=== PATIENT | male | born 1985 | race Caucasian/White ===

== ENCOUNTER 2016-08-14 21:46 | Emergency (ER) | payer BC | END 2016-08-15 00:37 | disposition home or self-care (01) | LOC: D.ER 21:46 | DX: M62.838 Other muscle spasm (principal); M54.2 Cervicalgia; F17.200 Nicotine dependence, unspecified, uncomplicated ==

== ENCOUNTER 2020-08-09 05:34 | Day surgery (SDC) | payer OTHER ==
[~2020-08-09] VITALS: Ht 188 cm; Wt 91.6 kg
[~2020-08-09 05:34] MED LIST: FERGON 240 MG240 MG PO; HYDROCODON-ACE1 EA10 PO; MILK THISTLE PO; PROTONIX40 MG PO; SAW PALMETTO450 MG PO
[2020-08-09 06:40] LABS: BASOPHILS 0.3 % (0-2); EOSINOPHILS 1.7 % (0-7); HEMATOCRIT 37.1 % (42.0-54.0); HEMOGLOBIN 11.3 g/dL (13.5-17.5); IMMATURE GRANULOCYTES 0.2 % (0-5); LYMPHOCYTE ABS# 2.76 10x3/uL (1.32-3.57); LYMPHOCYTES 24.1 % (15-50); MCH 22.2 pg (26.0-34.0); MCHC 30.5 g/dL (31.0-37.0); MEAN PLATELET VOLUME 8.6 fL (7.4-10.4); MONOCYTES 8.2 % (2-11); NEUTROPHIL ABS# 7.49 10x3/uL (1.78-5.38); NEUTROPHILS 65.5 % (40-80); RBC 5.08 10x6/uL (4.20-6.10); RDW 19.2 % (11.5-14.5); WBC 11.4 10x3/uL (4.8-10.8)
[2020-08-09 06:49] LABS: PLATELET COUNT 417 10x3/uL (130-400)
[2020-08-09 06:56] LABS: APTT 31.7 SECONDS (22.8-39.4); INR 1.14 (0.85-1.17); PROTIME 13.5 SECONDS (11.6-15.0)
[2020-08-09 07:02] VITALS: BP 109/77; Ht 188 cm; Wt 91.6 kg
[2020-08-09] MEDS ORDERED: BACTRIM DS TAB1 EAC1 PO (10:34)
[2020-08-09] MEDS ORDERED: TYLENOL W/CODEI1 TAB PO (10:35)
--- NOTE | 2020-08-09 12:21 | NUR ---
1200 IV DC'D. CATHETER TIP INTACT. NO BLEEDING AT SITE. BANDAID APPLIED. PT STATES HE CANNOT TOLERATE PERCOCET THAT WAS PRESCIBED FOR POST OP PAIN. 1205 DR FINNEGAN NOTIFED OF PT'S INTOLERANCE OF PERCOCET AND HIS REQUEST FOR NORCO WHICH HE HAS TAKEN AND CAN TOLERATE. PT STATES THAT PERCOCET "UPSETS HIS STOMACH" 1206 PT HAS MET DISCHARGE CRITERIA AND IS WAITING ON DR FINNEGAN TO WRITE ANOTHER PRESCRIPTION FOR PAIN
--- NOTE | 2020-08-09 12:55 | NUR ---
1216 DR FINNEGAN AT PT'S BEDSIDE AND A NEW PRESCRIPTION FOR NORCO WRITTEN FOR PT.
== END 2020-08-09 12:22 | disposition home or self-care (01) ==
LOC: D.OPS 05:34
PROVIDERS: Anesthesiology; ATTEND Surgery
DX: C20 Malignant neoplasm of rectum (principal); K92.2 Gastrointestinal hemorrhage, unspecified

== ENCOUNTER 2020-08-21 10:43 | Inpatient (IN) | payer OTHER ==
[~2020-08-21] VITALS: Ht 188 cm; Wt 91.3 kg
[~2020-08-21 10:43] MED LIST changes: +BACTRIM DS TAB1 EAC1 PO; +TYLENOL W/CODEI1 TAB PO
[2020-08-21 11:38] LABS: BASOPHILS 0.1 % (0-2); EOSINOPHILS 0.2 % (0-7); HEMATOCRIT 36.3 % (42.0-54.0); HEMOGLOBIN 11.2 g/dL (13.5-17.5); IMMATURE GRANULOCYTES 0.9 % (0-5); LYMPHOCYTE ABS# 0.88 10x3/uL (1.32-3.57); LYMPHOCYTES 8.5 % (15-50); MCH 22.1 pg (26.0-34.0); MCHC 30.9 g/dL (31.0-37.0); MCV 71.7 fL (80.0-100.0); MEAN PLATELET VOLUME 8.3 fL (7.4-10.4); MONOCYTES 6.5 % (2-11); NEUTROPHIL ABS# 8.67 10x3/uL (1.78-5.38); NEUTROPHILS 83.8 % (40-80); PLATELET COUNT 387 10x3/uL (130-400); RBC 5.06 10x6/uL (4.20-6.10); RDW 19.5 % (11.5-14.5); WBC 10.3 10x3/uL (4.8-10.8)
[2020-08-21 11:40] LABS: CALC OSMOLALITY 269 mosm/kg (275-300); CARBON DIOXIDE 25.3 mmol/L (21.0-32.0); CHLORIDE - SERUM 103 mmol/L (98-107); CREATININE - SERUM 0.7 mg/dL (0.6-1.3); GLUCOSE 111 mg/dL (74-106); POTASSIUM - SERUM 3.8 mmol/L (3.5-5.1); SODIUM 135 mmol/L (136-145); UREA NITROGEN 10 mg/dL (7-18); eGFR NON AFRICAN AMERICAN > 90 mL/min (90-120)
[2020-08-21 11:49] LABS: ALBUMIN 3.6 g/dL (3.4-5.0); ALKALINE PHOSPHATASE 70 U/L (30-120); ALT (SGPT) 23 U/L (10-68); AMYLASE - SERUM 51 U/L (25-115); LIPASE 82 U/L (73-393); PROTEIN - SERUM 7.4 g/dL (6.4-8.2); TROPONIN-I < 0.017 ng/mL (0.000-0.060)
[2020-08-21 13:35] LABS: INR 1.14 (0.85-1.17); PROTIME 13.5 SECONDS (11.6-15.0)
[2020-08-21 16:46] LABS: HEMATOCRIT 36.7 % (42.0-54.0); HEMOGLOBIN 11.6 g/dL (13.5-17.5)
--- NOTE | 2020-08-21 17:07 | NUR ---
PT ARRIVED VIA BED FROM ER, IV FLUID RESTARTED NS AT 100mL/HR
[2020-08-21 21:33] VITALS: BP 148/86
[2020-08-22] VITALS (7 sets, daily range): BP systolic 113–130; BP diastolic 71–82; Ht 188 cm; Wt 91.3 kg
[2020-08-22 01:20] LABS: HEMATOCRIT 32.8 % (42.0-54.0); HEMOGLOBIN 10.2 g/dL (13.5-17.5)
[2020-08-22 06:08] LABS: BASOPHILS 0.2 % (0-2); HEMATOCRIT 32.4 % (42.0-54.0); IMMATURE GRANULOCYTES 0.5 % (0-5); LYMPHOCYTES 25.4 % (15-50); MCH 22.3 pg (26.0-34.0); MCHC 30.9 g/dL (31.0-37.0); MCV 72.2 fL (80.0-100.0); MEAN PLATELET VOLUME 8.5 fL (7.4-10.4); MONOCYTES 14.3 % (2-11); NEUTROPHIL ABS# 3.17 10x3/uL (1.78-5.38); NEUTROPHILS 57.6 % (40-80); PLATELET COUNT 323 10x3/uL (130-400); RBC 4.49 10x6/uL (4.20-6.10); RDW 19.5 % (11.5-14.5)
[2020-08-22 06:21] LABS: WBC 5.5 10x3/uL (4.8-10.8)
[2020-08-22 06:43] LABS: APTT 25.1 SECONDS (22.8-39.4)
[2020-08-22 06:44] LABS: INR 1.19 (0.85-1.17)
[2020-08-22 07:03] LABS: ALBUMIN 2.9 g/dL (3.4-5.0); ALKALINE PHOSPHATASE 60 U/L (30-120); BILIRUBIN - TOTAL 0.42 mg/dL (0.2-1.3); CALC OSMOLALITY 270 mosm/kg (275-300); CALCIUM 8.3 mg/dL (8.5-10.1); CHLORIDE - SERUM 104 mmol/L (98-107); CREATININE - SERUM 0.7 mg/dL (0.6-1.3); FERRITIN 56 ng/mL (3-244); GLUCOSE 85 mg/dL (74-106); POTASSIUM - SERUM 3.4 mmol/L (3.5-5.1); PROTEIN - SERUM 6.4 g/dL (6.4-8.2); SODIUM 136 mmol/L (136-145); UREA NITROGEN 12 mg/dL (7-18); eGFR NON AFRICAN AMERICAN > 90 mL/min (90-120)
[2020-08-22 07:04] LABS: ALT (SGPT) 17 U/L (10-68)
--- NOTE | 2020-08-22 07:20 | NUR ---
Patient's pain managed with the prescribed pain medication, he appeared to rest well.
[2020-08-22 13:25] LABS: ALBUMIN 3.1 g/dL (3.4-5.0); ALKALINE PHOSPHATASE 63 U/L (30-120); ALT (SGPT) 19 U/L (10-68); BILIRUBIN - TOTAL 0.25 mg/dL (0.2-1.3); CALC OSMOLALITY 270 mosm/kg (275-300); CALCIUM 8.2 mg/dL (8.5-10.1); CARBON DIOXIDE 25.6 mmol/L (21.0-32.0); CHLORIDE - SERUM 103 mmol/L (98-107); CREATININE - SERUM 0.8 mg/dL (0.6-1.3); GLUCOSE 109 mg/dL (74-106); POTASSIUM - SERUM 3.5 mmol/L (3.5-5.1); PROTEIN - SERUM 6.6 g/dL (6.4-8.2); SODIUM 135 mmol/L (136-145); UREA NITROGEN 12 mg/dL (7-18); eGFR NON AFRICAN AMERICAN > 90 mL/min (90-120)
[2020-08-22 15:59] LABS: HEMATOCRIT 32.3 % (42.0-54.0)
[2020-08-22 16:28] LABS: ALBUMIN 3.1 g/dL (3.4-5.0); ALKALINE PHOSPHATASE 64 U/L (30-120); ALT (SGPT) 19 U/L (10-68); BILIRUBIN - TOTAL 0.21 mg/dL (0.2-1.3); CALC OSMOLALITY 268 mosm/kg (275-300); CALCIUM 8.1 mg/dL (8.5-10.1); CHLORIDE - SERUM 103 mmol/L (98-107); CREATININE - SERUM 0.8 mg/dL (0.6-1.3); GLUCOSE 83 mg/dL (74-106); POTASSIUM - SERUM 3.8 mmol/L (3.5-5.1); PROTEIN - SERUM 6.1 g/dL (6.4-8.2); SODIUM 135 mmol/L (136-145); UREA NITROGEN 12 mg/dL (7-18); eGFR NON AFRICAN AMERICAN > 90 mL/min (90-120)
[2020-08-22 22:11] LABS: ALBUMIN 2.9 g/dL (3.4-5.0); ALKALINE PHOSPHATASE 62 U/L (30-120); ALT (SGPT) 17 U/L (10-68); BILIRUBIN - TOTAL 0.11 mg/dL (0.2-1.3); CALC OSMOLALITY 272 mosm/kg (275-300); CALCIUM 8.2 mg/dL (8.5-10.1); CARBON DIOXIDE 26.8 mmol/L (21.0-32.0); CHLORIDE - SERUM 104 mmol/L (98-107); CREATININE - SERUM 0.8 mg/dL (0.6-1.3); GLUCOSE 112 mg/dL (74-106); POTASSIUM - SERUM 3.5 mmol/L (3.5-5.1); PROTEIN - SERUM 6.4 g/dL (6.4-8.2); SODIUM 136 mmol/L (136-145); UREA NITROGEN 13 mg/dL (7-18); eGFR NON AFRICAN AMERICAN > 90 mL/min (90-120)
[2020-08-23 01:05] LABS: HEMATOCRIT 30.2 % (42.0-54.0); HEMOGLOBIN 9.4 g/dL (13.5-17.5)
[2020-08-23 02:32] LABS: BILIRUBIN NEGATIVE (NEGATIVE); KETONE NEGATIVE (NEGATIVE); NITRITE NEGATIVE (NEGATIVE); UROBILINOGEN NORMAL mg/dL (< 2)
[2020-08-23 02:33] LABS: BACTERIA FEW HPF (NONE SEEN); SQUAMOUS EPITHELIAL 0-5 HPF (0-4); WHITE CELLS - URINE 0-5 HPF (0-1)
[2020-08-23 04:37] VITALS: BP 117/79
--- NOTE | 2020-08-23 05:50 | NUR ---
PATIENT HAD HIS PAIN MANAGED WITH THE PRESCRIBED PAIN MEDICATIONS, HE DID NOT WANT TO WEAR HIS SCD'S, HS APPEARED TO REST WELL THROUGH THE NIGHT.
[2020-08-23 07:00] LABS: ALBUMIN 2.9 g/dL (3.4-5.0); ALKALINE PHOSPHATASE 59 U/L (30-120); ALT (SGPT) 16 U/L (10-68); BILIRUBIN - TOTAL 0.23 mg/dL (0.2-1.3); CALC OSMOLALITY 271 mosm/kg (275-300); CALCIUM 8.6 mg/dL (8.5-10.1); CHLORIDE - SERUM 104 mmol/L (98-107); CREATININE - SERUM 0.7 mg/dL (0.6-1.3); GLUCOSE 93 mg/dL (74-106); POTASSIUM - SERUM 3.7 mmol/L (3.5-5.1); PROTEIN - SERUM 6.5 g/dL (6.4-8.2); SODIUM 136 mmol/L (136-145); UREA NITROGEN 13 mg/dL (7-18); eGFR NON AFRICAN AMERICAN > 90 mL/min (90-120)
[2020-08-23 07:47] VITALS: BP 117/78
[2020-08-23 09:53] LABS: HEMATOCRIT 31.4 % (42.0-54.0); HEMOGLOBIN 9.7 g/dL (13.5-17.5)
[2020-08-23] MEDS ORDERED: FLORAJEN3 CAPS460 MG PO (11:03)
[2020-08-23] MEDS ORDERED: LEVOFLOXACIN500 MG PO (11:04)
[2020-08-23] MEDS ORDERED: FLAGYL500 MG PO (11:04)
[2020-08-23] MEDS ORDERED: DURAGESIC1 EAC4 TOPICAL (11:27)
[2020-08-23] MEDS ORDERED: HYDROCODON-ACE1 EA10 PO (11:56)
[2020-08-23] MEDS ORDERED: MS CONTIN30 MG PO (12:15)
[2020-08-23 12:25] VITALS: BP 124/90
[2020-08-23 12:52] LABS: ALBUMIN 3.1 g/dL (3.4-5.0); ALKALINE PHOSPHATASE 63 U/L (30-120); ALT (SGPT) 17 U/L (10-68); BILIRUBIN - TOTAL 0.15 mg/dL (0.2-1.3); CALC OSMOLALITY 274 mosm/kg (275-300); CALCIUM 8.4 mg/dL (8.5-10.1); CARBON DIOXIDE 26.1 mmol/L (21.0-32.0); CHLORIDE - SERUM 104 mmol/L (98-107); CREATININE - SERUM 0.7 mg/dL (0.6-1.3); GLUCOSE 90 mg/dL (74-106); POTASSIUM - SERUM 4.2 mmol/L (3.5-5.1); PROTEIN - SERUM 6.3 g/dL (6.4-8.2); SODIUM 138 mmol/L (136-145); UREA NITROGEN 11 mg/dL (7-18); eGFR NON AFRICAN AMERICAN > 90 mL/min (90-120)
--- NOTE | 2020-08-23 14:51 | NUR ---
[facility] FLUSHED WITH 300 UNITS HEPARIN PER PROTOCOL AND DEACCESSED. PT GIVEN DISCHARGE INSTRUCTIONS AND VOICED NO QUESTIONS REGARDING INSTRUCTIONS.
--- NOTE | 2020-08-24 12:00 | MORECARE ---
CASE MANAGEMENT DISCHARGE SUMMARY PATIENT: PATTI CHAVEZ UNIT: [id number] ADM DATE: 08/21/20 AGE: 35 : 83 SEX: M ROOM/BED: D.2201 AUTHOR: ENDY,DOC PHYSICIAN: REFERRING PHYSICIAN: ANNA MUNOZ MD DATE OF SERVICE: 08/24/20 Case Management Discharge Planning Summary COMMENTS ENTERED DATE: 08/23/20 12:27 CT COMMENT TYPE: Discharge Planning REVIEWER: Gisela Olivier CM met with patient to complete initial dc planning assessment. CM educated patient on the CM role and verbal consent given by patient to complete assessment. Patient lives at home with his parents and his son where he is independent with his care. At discharge patient plans to return home and feels this is a safe discharge. CM discussed availability of home health, rehab services, and medical equipment. Patient denied known discharge needs at this time. His mother will be his tour bus driver/guide home today. CM will continue to follow and will assist as needed with dc plans/needs. DCP REVIEW SUMMARY ANTICIPATED D/C DATE: EXPECTED LOS : CASE STATUS: DCP Initiated INITIAL REVIEW: 08/22/2020 INITIAL REVIEWER: Gisela Olivier FINAL DISCHARGE DISPOSITION: 01 : Home or Self Care (Routine Discharge) FINAL REVIEWER: FINAL REVIEW DATE: LACE: UPDATED BY: [id number]: Gisela Olivier on 08/22/20 12:09 CT QUESTION: ANSWER Length of Stay (Prior Admit): 7 to 13 Days Acute Admission: Inpatient Comorbidity: (2PTS) Mld Liver DZ, DM W/End Organ Damage, CHF, COPD, CA, Leuk, Lympho, Any Tumor, Mod to Sev Renal Emergency Room visits during previous 6 months: 2 Visits DCP Focus Questions & Answers DCP REV -DCP Review Added on: 08/23/20 12:21 pm QUESTION: ANSWER DCP Screen High Risk Factors: : Hosp related to CHF, COPD, DM, End Stage Ds, CVA, CA DCP Evaluation Patient's ability to cope with chronic illness : d. No chronic illness Mental health screen: : No mental health history Would patient like to participate in any Care Coordination programs (if applicable): : Not applicable Patient gives permission to discuss discharge plans with: (name, relationship and number) : PATIENT Physical Status: : Independent with ADL's Baseline cognitive status: : *Oriented to person, place, situation, time and present Family / Caregiver's ability to cope with chronic illness: : a. Adequate (ability to meet patient's medical needs, ensures patient attends medical appts.) Living Arrangements: : Home with Parents Living arrangements comments: : HOME WITH PARENTS AND SON Facility / Agency name and contact information from Question 3 (if applicable): : [facility] [phone] Medication Management: : Patient states can afford medications Pharm[facility] : [facility] Does Patient have transportation to get home and to follow-up medical appointments when discharged from the hospital? : Yes Does the patient have electricity at home? : Yes Does the patient have running water in their house? : Yes Equipment in use: : None Patient's current cognitive status: : *Oriented to person, place, situation, time and present Functional screen assessment: : Can meet basic needs but may require referral for resources Patient with capacity for self-care or can be cared for in same environment as prior to hospitalization? : Yes Family / Caregiver's ability to cope with chronic illness: : a. Adequate (ability to meet patient's medical needs, ensures patient attends medical appts.) Does the patient have the ability to pay for or attain post discharge needs / services? : Yes Is there a likelihood that the patient will require additional services to return to the preadmission environment? : No Equipment needed for post hospitalization: : None DCP Re-evaluation Would patient like to participate in any Care Coordination programs (if applicable): : Not applicable PATIENT: PATTI CHAVEZ ENCOUNTER: [id number] MEDICAL RECORD#: [id number] ADMISSION DATE: 08/21/2020 DISCHARGE DATE: 08/23/2020 ATTENDING MD: BRIDGET: AGE: 35 MARITAL STATUS: S DC PLAN ID: [id number] FACILITY: [facility] PRINTED ON: 08/24/20 12:00 CT All edits/amendments must be made on the electronic document DICTATION DATE: 08/24/20 1200 VEHICLE MONITOR TECHNICIAN: ALE 08/24/20 1200 RPT#: [id number] DC DATE:08/23/20 STATUS: DIS IN [facility] [address] [place] [address] END OF REPORT
== END 2020-08-23 15:19 | disposition home or self-care (01) | DRG 378 ==
LOC: D.ER 10:43 → D.MS 15:13
PROVIDERS: Family Medicine; ADMIT Family Medicine; ATTEND Family Medicine
DX: K92.2 Gastrointestinal hemorrhage, unspecified (principal); C18.9 Malignant neoplasm of colon, unspecified; K52.9 Noninfective gastroenteritis and colitis, unspecified; D50.9 Iron deficiency anemia, unspecified; I10 Essential (primary) hypertension; F12.90 Cannabis use, unspecified, uncomplicated; T45.1X5A Adverse effect of antineoplastic and immunosuppressive drugs, initial encounter; T66.XXXA Radiation sickness, unspecified, initial encounter; D63.8 Anemia in other chronic diseases classified elsewhere

== ENCOUNTER 2020-10-15 16:54 | Inpatient (IN) | payer OTHER ==
[~2020-10-15] VITALS: Ht 188 cm; Wt 98.2 kg
[~2020-10-15 16:54] MED LIST changes: +DURAGESIC1 EAC4 TOPICAL; +FLAGYL500 MG PO; +FLORAJEN3 CAPS460 MG PO; +LEVOFLOXACIN500 MG PO; +MS CONTIN30 MG PO
--- NOTE | 2020-10-15 17:29 | NUR ---
STOOL OCCULT NEGATIVE. DR MORENO NOTIFIED
[2020-10-15 17:36] LABS: BASOPHILS 0.4 % (0-2); EOSINOPHILS 0.9 % (0-7); HEMATOCRIT 38.3 % (42.0-54.0); HEMOGLOBIN 12.2 g/dL (13.5-17.5); IMMATURE GRANULOCYTES 0.2 % (0-5); LYMPHOCYTE ABS# 0.88 10x3/uL (1.32-3.57); LYMPHOCYTES 10.3 % (15-50); MCH 24.8 pg (26.0-34.0); MCHC 31.9 g/dL (31.0-37.0); MEAN PLATELET VOLUME 8.5 fL (7.4-10.4); MONOCYTES 9.4 % (2-11); NEUTROPHIL ABS# 6.74 10x3/uL (1.78-5.38); NEUTROPHILS 78.8 % (40-80); PLATELET COUNT 368 10x3/uL (130-400); RBC 4.91 10x6/uL (4.20-6.10); WBC 8.6 10x3/uL (4.8-10.8)
[2020-10-15 17:40] LABS: APTT 29.4 SECONDS (22.8-39.4); INR 1.14 (0.85-1.17); PROTIME 13.6 SECONDS (11.6-15.0)
[2020-10-15 17:41] LABS: CALC OSMOLALITY 280 mosm/kg (275-300); CALCIUM 9.5 mg/dL (8.5-10.1); CHLORIDE - SERUM 103 mmol/L (98-107); CREATININE - SERUM 0.9 mg/dL (0.6-1.3); GLUCOSE 128 mg/dL (74-106); POTASSIUM - SERUM 3.5 mmol/L (3.5-5.1); SODIUM 140 mmol/L (136-145); UREA NITROGEN 12 mg/dL (7-18); eGFR NON AFRICAN AMERICAN > 90 mL/min (90-120)
[2020-10-15 17:50] LABS: ALBUMIN 3.7 g/dL (3.4-5.0); ALKALINE PHOSPHATASE 79 U/L (30-120); ALT (SGPT) 27 U/L (10-68); AMYLASE - SERUM 79 U/L (25-115); LIPASE 144 U/L (73-393); PROTEIN - SERUM 8.1 g/dL (6.4-8.2)
[2020-10-15 18:02] LABS: TROPONIN-I < 0.017 ng/mL (0.000-0.060)
[2020-10-15 19:34] VITALS: BP 125/84
[2020-10-15] MEDS ORDERED: HYDROCODON-ACE1 EA10 PO (21:11)
[2020-10-15 21:32] VITALS: BP 117/80; BMI 26.2
[2020-10-16 04:00] VITALS: BP 109/69
[2020-10-16 06:49] LABS: ALKALINE PHOSPHATASE 61 U/L (30-120); ALT (SGPT) 22 U/L (10-68); BILIRUBIN - TOTAL 0.21 mg/dL (0.2-1.3); CALC OSMOLALITY 281 mosm/kg (275-300); CALCIUM 8.6 mg/dL (8.5-10.1); CARBON DIOXIDE 25.5 mmol/L (21.0-32.0); CHLORIDE - SERUM 107 mmol/L (98-107); GLUCOSE 89 mg/dL (74-106); PROTEIN - SERUM 6.3 g/dL (6.4-8.2); SODIUM 142 mmol/L (136-145); UREA NITROGEN 12 mg/dL (7-18); eGFR NON AFRICAN AMERICAN 89 mL/min (90-120)
[2020-10-16 07:19] LABS: BASOPHILS 0.7 % (0-2); EOSINOPHILS 2.5 % (0-7); HEMATOCRIT 34.3 % (42.0-54.0); HEMOGLOBIN 10.9 g/dL (13.5-17.5); IMMATURE GRANULOCYTES 0.2 % (0-5); LYMPHOCYTE ABS# 0.94 10x3/uL (1.32-3.57); LYMPHOCYTES 16.8 % (15-50); MCH 25.1 pg (26.0-34.0); MCHC 31.8 g/dL (31.0-37.0); MEAN PLATELET VOLUME 8.6 fL (7.4-10.4); MONOCYTES 13.2 % (2-11); NEUTROPHIL ABS# 3.72 10x3/uL (1.78-5.38); NEUTROPHILS 66.6 % (40-80); PLATELET COUNT 320 10x3/uL (130-400); RBC 4.34 10x6/uL (4.20-6.10); RDW 21.2 % (11.5-14.5)
[2020-10-16 07:20] LABS: WBC 5.6 10x3/uL (4.8-10.8)
[2020-10-16 08:58] VITALS: BP 112/71
--- NOTE | 2020-10-16 10:16 | NUR ---
ASSESSMENT PER FLOW SHEET. PATIENT IS WITHOUT DISTRESS.HE DENIES NEEDS AT PRESENT.PAIN COTROLLED WITH OUTSIDE SALES REPRESENTATIVE. NPO FOR SURGERY TODAY. SCD'S ON AND WORKING. IS AT BEDSIDE.
--- NOTE | 2020-10-16 11:13 | NUR ---
PREMEDS ORDERED. CONSENTS TO CHART ORDERED
--- NOTE | 2020-10-16 11:52 | NUR ---
TO OR VIA BED.
[2020-10-16 12:40] VITALS: Ht 188 cm; Wt 98.2 kg
[2020-10-16 13:53] VITALS: BP 116/74
[2020-10-16 17:52] VITALS: BP 118/77
[2020-10-16 19:42] LABS: CALC OSMOLALITY 279 mosm/kg (275-300); CALCIUM 8.6 mg/dL (8.5-10.1); CARBON DIOXIDE 21.9 mmol/L (21.0-32.0); CHLORIDE - SERUM 106 mmol/L (98-107); CREATININE - SERUM 0.8 mg/dL (0.6-1.3); GLUCOSE 141 mg/dL (74-106); POTASSIUM - SERUM 3.6 mmol/L (3.5-5.1); SODIUM 139 mmol/L (136-145); UREA NITROGEN 12 mg/dL (7-18); eGFR NON AFRICAN AMERICAN > 90 mL/min (90-120)
[2020-10-17] VITALS (7 sets, daily range): BP systolic 107–137; BP diastolic 64–84
[2020-10-17 02:16] LABS: NITRITE NEGATIVE (NEGATIVE)
[2020-10-17 02:17] LABS: BILIRUBIN NEGATIVE (NEGATIVE); KETONE SMALL mg/dL (NEGATIVE); UROBILINOGEN NORMAL mg/dL (< 2)
[2020-10-17 02:18] LABS: BACTERIA FEW HPF (NONE SEEN); SQUAMOUS EPITHELIAL 0-5 HPF (0-4); WHITE CELLS - URINE 0-5 HPF (0-1)
--- NOTE | 2020-10-17 04:55 | NUR ---
PATIENT SAT UP ON EDGE OF BED WITH ASSIST. ONLY ABLE TO TOLERATE FOR A FEW MINUTES.
[2020-10-17 07:42] LABS: BASOPHILS 0 % (0-2); EOSINOPHILS 0 % (0-7); HEMATOCRIT 34.5 % (42.0-54.0); HEMOGLOBIN 10.8 g/dL (13.5-17.5); IMMATURE GRANULOCYTES 0.3 % (0-5); LYMPHOCYTE ABS# 0.61 10x3/uL (1.32-3.57); LYMPHOCYTES 5.1 % (15-50); MCH 24.5 pg (26.0-34.0); MCHC 31.3 g/dL (31.0-37.0); MCV 78.2 fL (80.0-100.0); MEAN PLATELET VOLUME 9.1 fL (7.4-10.4); MONOCYTES 7.5 % (2-11); NEUTROPHIL ABS# 10.43 10x3/uL (1.78-5.38); NEUTROPHILS 87.1 % (40-80); PLATELET COUNT 370 10x3/uL (130-400); RBC 4.41 10x6/uL (4.20-6.10); RDW 20.8 % (11.5-14.5)
[2020-10-17 08:25] LABS: ALBUMIN 2.9 g/dL (3.4-5.0); ALKALINE PHOSPHATASE 58 U/L (30-120); ALT (SGPT) 21 U/L (10-68); BILIRUBIN - TOTAL 0.31 mg/dL (0.2-1.3); CALC OSMOLALITY 278 mosm/kg (275-300); CALCIUM 8.7 mg/dL (8.5-10.1); CARBON DIOXIDE 22.4 mmol/L (21.0-32.0); CHLORIDE - SERUM 105 mmol/L (98-107); CREATININE - SERUM 0.8 mg/dL (0.6-1.3); GLUCOSE 121 mg/dL (74-106); POTASSIUM - SERUM 4.2 mmol/L (3.5-5.1); PROTEIN - SERUM 6.4 g/dL (6.4-8.2); SODIUM 140 mmol/L (136-145); UREA NITROGEN 10 mg/dL (7-18); eGFR NON AFRICAN AMERICAN > 90 mL/min (90-120)
[2020-10-18] VITALS: BP 150/112
[2020-10-18 06:23] LABS: BASOPHILS 0.1 % (0-2); EOSINOPHILS 0.3 % (0-7); HEMATOCRIT 33.2 % (42.0-54.0); HEMOGLOBIN 10.6 g/dL (13.5-17.5); IMMATURE GRANULOCYTES 0.3 % (0-5); LYMPHOCYTE ABS# 0.31 10x3/uL (1.32-3.57); LYMPHOCYTES 4.5 % (15-50); MCH 24.9 pg (26.0-34.0); MCHC 31.9 g/dL (31.0-37.0); MCV 78.1 fL (80.0-100.0); MEAN PLATELET VOLUME 8.7 fL (7.4-10.4); MONOCYTES 4.4 % (2-11); NEUTROPHIL ABS# 6.17 10x3/uL (1.78-5.38); NEUTROPHILS 90.4 % (40-80); PLATELET COUNT 303 10x3/uL (130-400); RBC 4.25 10x6/uL (4.20-6.10)
[2020-10-18 06:33] LABS: WBC 6.8 10x3/uL (4.8-10.8)
--- NOTE | 2020-10-18 07:43 | NUR ---
RESTING IN BED WITH EYES CLOSED, EASILY AROUSED TO SPEECH. REPORTS PAIN 10/10, ADMINISTERED MORPHINE PER DR.S ORDERS. ALERT AND ORIENTED. MADHAV DRAIN PRESENT. IV LOCATED TO RIGHT HAND CURRENTLY RUNNING D5NS@ 125. NO CURRENT S/S OF DISTRESS, DENIES FURTHER NEEDS, WILL CONT TO MONITOR.
[2020-10-18 09:01] VITALS: BP 133/73
--- NOTE | 2020-10-18 13:38 | NUR ---
Nutrition follow-up: Pt continues NPO for one more day per surgeon. +gas,BM x 2 NGT out Labs reviewed WT: 204# Recommend starting ProcalAmine PPN @ 125 ml/hr if diet unable to begin 10/19/20 RDN follow-up: 10/20/20
[2020-10-18 13:55] VITALS: BP 127/90
--- NOTE | 2020-10-18 17:39 | NUR ---
PRN PAIN MEDICATION PROVIDED. DENIES FURTHER NEEDS. WILL CONTINUE TO MONITOR.
[2020-10-18 17:46] VITALS: BP 127/79
--- NOTE | 2020-10-18 18:07 | NUR ---
PATIENT REQUESTING PRN ANXIETY MEDICATION. WILL NOTIFY
--- NOTE | 2020-10-18 18:29 | NUR ---
SPOKE WITH KAYLYN ADAMS WHO GAVE ORDERS FOR PRN ANXIETY MEDICATION. MED GIVEN.
[2020-10-18 19:41] VITALS: BP 128/79
[2020-10-19] VITALS (11 sets, daily range): BP systolic 89–150; BP diastolic 56–112
--- NOTE | 2020-10-19 03:39 | NUR ---
PT ACCOUNT GROUP SUPERVISOR LIGHT REQUESTING ANXIETY MED HE WAS INFORMED MED IS Q6H. NO OTHER NEEDS AT THE MOMENT WILL CONT TO MONITOR.
--- NOTE | 2020-10-19 03:54 | NUR ---
I have reviewed this patient and I concur with the Shift Assessment completed by the Licensed Practical Nurse today this shift.
--- NOTE | 2020-10-19 08:03 | NUR ---
AWAKE AND ALERT SKIN WARM AND AND DRY. ASSESSMENT DOCUMENTED. UP TO BATHROOM. GAIT STEADY. IV PATIENT IN RIGHT HAND INFUSING WITH D5NS NO SWELLING OR REDNESS NOTED. DISCUSS PAIN MANAGEMENT. DRESSING DRY AND INTACT MADHAV DRAIN INTACT. STATES HE HAS HAD 4 BM'S SOLID THIS AM.
[2020-10-19 09:35] LABS: ALBUMIN 2.1 g/dL (3.4-5.0); ALKALINE PHOSPHATASE 53 U/L (30-120); ALT (SGPT) 18 U/L (10-68); BILIRUBIN - TOTAL 0.48 mg/dL (0.2-1.3); CALC OSMOLALITY 270 mosm/kg (275-300); CALCIUM 8.5 mg/dL (8.5-10.1); CARBON DIOXIDE 20.5 mmol/L (21.0-32.0); CHLORIDE - SERUM 102 mmol/L (98-107); CREATININE - SERUM 0.9 mg/dL (0.6-1.3); GLUCOSE 123 mg/dL (74-106); POTASSIUM - SERUM 3.4 mmol/L (3.5-5.1); PROTEIN - SERUM 6.3 g/dL (6.4-8.2); SODIUM 134 mmol/L (136-145); UREA NITROGEN 19 mg/dL (7-18); eGFR NON AFRICAN AMERICAN > 90 mL/min (90-120)
[2020-10-19 10:20] LABS: BASOPHILS 0 % (0-2); EOSINOPHILS 0.3 % (0-7); HEMATOCRIT 33.1 % (42.0-54.0); HEMOGLOBIN 10.7 g/dL (13.5-17.5); IMMATURE GRANULOCYTES 0.3 % (0-5); LYMPHOCYTE ABS# 0.42 10x3/uL (1.32-3.57); LYMPHOCYTES 6.6 % (15-50); MCH 25.2 pg (26.0-34.0); MCHC 32.3 g/dL (31.0-37.0); MCV 77.9 fL (80.0-100.0); MEAN PLATELET VOLUME 9.4 fL (7.4-10.4); NEUTROPHIL ABS# 5.43 10x3/uL (1.78-5.38); NEUTROPHILS 85.8 % (40-80); PLATELET COUNT 282 10x3/uL (130-400); RBC 4.25 10x6/uL (4.20-6.10); RDW 20.8 % (11.5-14.5); WBC 6.3 10x3/uL (4.8-10.8)
--- NOTE | 2020-10-19 13:19 | NUR ---
TO OR PER BED
--- NOTE | 2020-10-19 16:53 | NUR ---
ARRIVED TO ICU FROM OR ACCOMPANIED BY OR STAFF. ATTACHED TO MONITORS. CHARLES ACCESSED WITH 20 G NEEDLE BY PAUL LYMAN RN. NGT IS TO PARUL.
--- NOTE | 2020-10-19 21:48 | NUR ---
CALLED DR. SARAVIA DUE TO SPIKE IN TEMP, ORDER FOR IV TYLENOL GIVEN
[2020-10-20] VITALS (26 sets, daily range): BP systolic 92–1198; BP diastolic 59–80
--- NOTE | 2020-10-20 04:33 | NUR ---
TRIED TO TURN PT MULTIPLE TIMES, PT REFUSED WANTING TO STAY ON HIS BACK. PT WAS INFORMED ON THE IMPORTANCE OF TURNING
[2020-10-20 04:58] LABS: BASOPHILS 0 % (0-2); EOSINOPHILS 0 % (0-7); HEMATOCRIT 33.7 % (42.0-54.0); HEMOGLOBIN 10.9 g/dL (13.5-17.5); IMMATURE GRANULOCYTES 0.3 % (0-5); LYMPHOCYTE ABS# 0.22 10x3/uL (1.32-3.57); LYMPHOCYTES 7.1 % (15-50); MCH 25.1 pg (26.0-34.0); MCHC 32.3 g/dL (31.0-37.0); MCV 77.6 fL (80.0-100.0); MEAN PLATELET VOLUME 8.9 fL (7.4-10.4); MONOCYTES 4.2 % (2-11); NEUTROPHIL ABS# 2.76 10x3/uL (1.78-5.38); NEUTROPHILS 88.4 % (40-80); PLATELET COUNT 251 10x3/uL (130-400); RBC 4.34 10x6/uL (4.20-6.10); RDW 20.6 % (11.5-14.5)
--- NOTE | 2020-10-20 05:13 | NUR ---
WHEN EMPTY MADHAV DRAIN, FECAL MATTER WAS NOTED IN THE DRAINAGE. DR. FINNEGAN WAS NOTIFIED AND STATED THAT IT WAS EXPECTED.
[2020-10-20 05:21] LABS: WBC 3.1 10x3/uL (4.8-10.8)
[2020-10-20 05:39] LABS: ALBUMIN 1.6 g/dL (3.4-5.0); ANION GAP 16.6 mmol/L (8-16); BILIRUBIN - TOTAL 0.52 mg/dL (0.2-1.3); CALCIUM 7.9 mg/dL (8.5-10.1); CARBON DIOXIDE 22.1 mmol/L (21.0-32.0); POTASSIUM - SERUM 3.7 mmol/L (3.5-5.1); PROTEIN - SERUM 5.9 g/dL (6.4-8.2)
[2020-10-20 05:41] LABS: CREATININE - SERUM 1.3 mg/dL (0.6-1.3)
--- NOTE | 2020-10-20 11:07 | NUR ---
PATIENT GIVEN ENEMA 200 PER RECTUM ORDERED BY PHYSICIAN MOST OUTPUT CAME FROM MADHAV DRAINS AND PT UP TO BSC WITH LITTLE ASSISTANCE. BATH GIVEN AND TOTAL LINEN CHANGED AND COLOSTOMY BAG CHANGED OUT OTHER WAS LEAKING.
--- NOTE | 2020-10-20 13:02 | NUR ---
Nutrition Follow-up: POD 1 diverting colostomy; POD 4 very low anterior resection with coloanal region anastomosis. NPO with NGT to LIS. No new wt; last wt: 204# (10/16) Labs noted: Ca 7.9, Alb 1.6 Meds noted: Protonix, Zofran, LR @ 100 -Rec Procal @ 125 mL/hr; provides 735 kcal (28-34% est needs) & 90 g protein (82-106% est needs) daily. -Need new wt. -RD follow-up: 10/23
--- NOTE | 2020-10-20 23:15 | NUR ---
PT A&O X4. COMPLAINS OF PAIN. PRN PAIN MED ADMINISTERED. 2ND 200CC OF TAP WARM ENEMA ADMINISTERED. TOLERATED WELL. MADHAV DRAINS OUTPUT 190
[2020-10-21] VITALS (28 sets, daily range): BP systolic 97–134; BP diastolic 62–85
--- NOTE | 2020-10-21 09:27 | NUR ---
NG TUBE REMOVED AND PATIENT TALKED WITH ABOUT HOW THE DAY WILL GO WITH HIM GETTING THE ENEMA.
--- NOTE | 2020-10-21 14:57 | NUR ---
PATIENT UP TO BEDSIDE COMMODE TO GIVE ENEMA. MOST DRAINAGE COMES FROM MADHAV 1. DRESSING CHANGE TO ABD DONE WOUND PACKED AND DRESSING APPLIED. NG TUVE DISCONTINUED WELL.
--- NOTE | 2020-10-21 15:48 | NUR ---
TALKED TO PATIENT ABOUT AMOUNT OF FLUID HE IS TAKING IN AND THAT I THOUGHT HE WAS SUPPOSE TO DO ONLY SMALL AMT. PATIENT CONTINUES TO DRINK AND SIP WATER AND ICE.
[2020-10-22] VITALS (22 sets, daily range): BP systolic 110–154; BP diastolic 66–96
[2020-10-22 04:36] LABS: HEMATOCRIT 28.5 % (42.0-54.0); HEMOGLOBIN 9.6 g/dL (13.5-17.5); MCH 25.2 pg (26.0-34.0); MCHC 33.7 g/dL (31.0-37.0); MEAN PLATELET VOLUME 10.6 fL (7.4-10.4); RBC 3.81 10x6/uL (4.20-6.10); RDW 20.3 % (11.5-14.5); WBC 8.7 10x3/uL (4.8-10.8)
[2020-10-22 04:37] LABS: MCV 74.8 fL (80.0-100.0); PLATELET COUNT 145 10x3/uL (130-400)
[2020-10-22 04:50] LABS: LYMPHOCYTES 5 % (15-50); MONOCYTES 4 % (2-11); NEUTROPHILS 83 % (40-80); PLATELET ESTIMATE NORMAL
[2020-10-22 05:11] LABS: ALBUMIN 1.4 g/dL (3.4-5.0); ALKALINE PHOSPHATASE 39 U/L (30-120); ALT (SGPT) 20 U/L (10-68); BILIRUBIN - TOTAL 0.33 mg/dL (0.2-1.3); CALC OSMOLALITY 284 mosm/kg (275-300); CALCIUM 8.1 mg/dL (8.5-10.1); CARBON DIOXIDE 20.9 mmol/L (21.0-32.0); CHLORIDE - SERUM 105 mmol/L (98-107); GLUCOSE 86 mg/dL (74-106); PROTEIN - SERUM 5.3 g/dL (6.4-8.2); SODIUM 141 mmol/L (136-145); UREA NITROGEN 27 mg/dL (7-18)
[2020-10-22 05:12] LABS: CREATININE - SERUM 0.7 mg/dL (0.6-1.3); eGFR NON AFRICAN AMERICAN > 90 mL/min (90-120)
--- NOTE | 2020-10-22 08:56 | NUR ---
PATIENT FAMILY BROUGHT IN BOTTLE OF WATER AND I WALKED IN TO PATIENT DRINKING FROM THE BOTTLE AND I ONCE AGAIN EXPLAINED HE IS NPO.
--- NOTE | 2020-10-22 13:44 | NUR ---
PATIENT ABD DRESSING CHANGED AND PACK DRY DRESSING TO SITE. SITE LOOK WELL PINK AND HEALING AND COLOSTOMY BAG CHANGED OUT WELL, WILL DISCONTINUE THE HERNANDEZ AT 3:30 THIS AFTERNOON.
[2020-10-23] VITALS: BP 137/87
--- NOTE | 2020-10-23 03:00 | NUR ---
REAL ESTATE ADMINISTRATIVE ASSISTANT LAYING AT BEDSIDE, STATES HE DOES NOT WANT TO WEAR ONE ANYMORE. RETURNED TO MONITOR STATION, [facility].
[2020-10-23 04:00] VITALS: BP 122/85
[2020-10-23 08:00] VITALS: BP 131/20
--- NOTE | 2020-10-23 08:08 | NUR ---
0800 DR FINNEGAN AT BEDSIDE INDTRUCTED TO GIVE ENEMA ONLY INSERTING ABOUT AN INCH DIET ORDERED TORADOL AND NORCO GIVE FOR ABDOMINAL PAIN OF 12/16 INSTRUCTED BY SURGEON TO PACK OPEN WOUNDS TO ABDOMINAL INCISION WITH 4X4s MADHAV #1 WITH 3 ML AND MADHAV#2 25 ML OF MARVIN PURELENT DRAINAGE EMPTIED COLOSTOMY EMPTIED 300ML LIQUID BM
--- NOTE | 2020-10-23 08:08 | NUR ---
0700 BEDSIDE REPORT RECEIVED AWAKE ALERT ASSESSMENT COMPLETE
--- NOTE | 2020-10-23 14:54 | NUR ---
Nutrition reassessment: Diet just advanced to full liquids, soft today; pt has been taking liquids without any issues. Colostomy with stool output. Estimated needs remain the same as initial assessment on 10/16/20 Nutrition diagnosis: Inadequate oral intake R/T diverting colostomy AEB pt NPO, clear liquids. Nutrition goals: - PO intake =/> 75% of full liquid soft diet - Will meet est fluid needs - sTable dry wt Nutrition intervetions: RDN will order Ensure/Boost with meals Follow-up on progress toward goals: 10/26/20
--- NOTE | 2020-10-23 17:21 | NUR ---
1100 PTS MOTHER AT BEDSIDE UPDATED MOTHER PER PTS REQUEST ENGAGING IN PAIN MANAGEMENT FOR PT PACKED INCISION TO ABDOMINAL SURGERY SITE WITH 4X4 SECURED SITE WITH ABD PAD AND SILK TAPE
--- NOTE | 2020-10-23 18:50 | NUR ---
1700 AMVULATES TO BR WITHOUT COMPLICATIONS
[2020-10-23 20:00] VITALS: BP 136/89
[2020-10-24 04:00] VITALS: BP 144/97
--- NOTE | 2020-10-24 05:06 | NUR ---
I have reviewed this patient and I concur with the Shift Assessment completed by the Licensed Practical Nurse today this shift.
[2020-10-24 06:17] LABS: BASOPHILS 1.5 % (0-2); EOSINOPHILS 5.7 % (0-7); HEMATOCRIT 30.9 % (42.0-54.0); HEMOGLOBIN 9.9 g/dL (13.5-17.5); LYMPHOCYTES 8.3 % (15-50); MCHC 32.2 g/dL (31.0-37.0); MCV 71.4 fL (80.0-100.0); MEAN PLATELET VOLUME 8.8 fL (7.4-10.4); MONOCYTES 13.1 % (2-11); NEUTROPHILS 71.4 % (40-80); RBC 4.32 10x6/uL (4.20-6.10); RDW 21.9 % (11.5-14.5); WBC 6.1 10x3/uL (4.8-10.8)
[2020-10-24 06:23] LABS: PLATELET COUNT 186 10x3/uL (130-400)
[2020-10-24 07:08] LABS: ALBUMIN 2.7 g/dL (3.4-5.0); ANION GAP 12.5 mmol/L (8-16); BILIRUBIN - TOTAL 1.4 mg/dL (0.2-1.3); CALCIUM 8.7 mg/dL (8.5-10.1); CARBON DIOXIDE 25.7 mmol/L (21.0-32.0); CREATININE - SERUM 1.4 mg/dL (0.6-1.3); MAGNESIUM - SERUM 2.1 mg/dL (1.8-2.4); POTASSIUM - SERUM 4.2 mmol/L (3.5-5.1); PROTEIN - SERUM 7.5 g/dL (6.4-8.2)
[2020-10-24 10:12] VITALS: BP 145/89
[2020-10-24 12:29] VITALS: BP 148/95
[2020-10-24 16:59] VITALS: BP 123/88
--- NOTE | 2020-10-24 18:32 | NUR ---
DRESSING TO ABD INCISION CHANGED.
[2020-10-24 20:00] VITALS: BP 132/89
[2020-10-25 04:00] VITALS: BP 115/55
--- NOTE | 2020-10-25 04:04 | NUR ---
PATIENT HAD PAIN AND ANXIETY MANAGED WITH THE PRESCRIBED PAIN MEDICATION, HE HAS HAD THE ABDOMINAL DRESSING CHANGED AND HE TOLERATED IT WELL. HE IS CURRENTLY RESTING IN BED WITH HIS EYES CLOSED.
--- NOTE | 2020-10-25 07:15 | NUR ---
second dressing change done at 0600 and new colostomy bag put on. Patient had 250 ml watery brown stool out of colostomy
--- NOTE | 2020-10-25 07:30 | NUR ---
RECIEVED BEDSIDE REPORT. IN BED, DENIES NEEDS AT THIS TIME. FREE FROM SIGNS OF DISTRESS. BED LOW POSITION, CALL LIGHT IN REACH. WILL CONTINUE TO MONITOR.
[2020-10-25 08:25] VITALS: BP 130/72
--- NOTE | 2020-10-25 12:10 | NUR ---
COMPLETED DRESSING CHANGE PER Q6H ORDERS. PACKED TWO SITES WITH DRY 4X4'S. COVERED WITH DRY 4X4'S AND PAPER TAPE. PATIENT TOLLERATED WELL.
[2020-10-25 12:58] VITALS: BP 137/82
--- NOTE | 2020-10-25 16:23 | NUR ---
100 ML SALINE ENEMA ADMINISTERED. PATIENT TOLLERATED WELL. DENIES NEEDS AT THIS TIME. WILL CONITNUE TO MONITOR.
[2020-10-25 17:47] VITALS: BP 135/83
--- NOTE | 2020-10-25 17:59 | NUR ---
CHANGED DRESSING TO ABDOMEN PER ORDERS. YELLOWISH DRAINAGE NOTED. PATIENT TOLLERATED WELL.
[2020-10-25 19:36] VITALS: BP 153/88
--- NOTE | 2020-10-26 03:56 | NUR ---
PATIENT HAD PAIN MANAGED WITH THE PRESCRIBED PAIN MEDICATION, PORT NEEDLE AND DRESSING CHANGE DONE, WOUND DRESSING CHANGED AND WILL CHANGE AGAIN WHEN DUE, HE IS CURRENTLY RESTING IN BED WITH HIS EYES CLOSED.
[2020-10-26 04:00] VITALS: BP 143/86
--- NOTE | 2020-10-26 07:44 | NUR ---
PT LAYING IN BED RESTING, AWAKE AND ALERT, RECEIVED REPORT FROM NIGHT RN, DRESSING C/D/I, NO SIGNS OF DISTRESS, NO NEEDS AT THIS TIME
[2020-10-26 08:25] VITALS: BP 137/77
--- NOTE | 2020-10-26 10:37 | NUR ---
DRESSING REMOVED, WOUNDS PACKED WITH DRY GAUZE, COVERED WITH 4X4 GAUZE, AND SECURED WITH SILK TAPE LABELED WITH DATE TIME AND INITIALS. PT TOLERATED WELL. NO NEEDS AT THIS TIME
[2020-10-26 13:01] VITALS: BP 143/93
--- NOTE | 2020-10-26 14:26 | NUR ---
Nutrition follow-up: Diet order: Regular soft with nutritional supplement TID PO intake ~60% of last 3 meals Labs reviewed Wt: 216# +BM Pts po intake is slowly improving; with some wt gain due to eating better. RDN will follow-up on pts continued progress toward nutrition goals: 11/01/20
[2020-10-26 17:18] VITALS: BP 160/94
--- NOTE | 2020-10-26 18:22 | NUR ---
ADMINISTERED LAST ENEMA WITH 50mL, CLEAR LIQUID RINSED OUT WITH NO EVIDENCE OF STOOL, THIS IS ALL PT COULD TOLERATE, DRESSING CHANGED ON ABD, MADHAV DRAINS DRAINED AND MEASURED, YELLOW/CREAM COLORED FLUID WITH FOUL SMELL, PT STATES COLOSTOMY IS LEAKING AND REQUEST IT BE CHANGED, COLOSTOMY BAG HAS LIQUID BROWN STOOL. BED PLACED IN LOWEST POSITION, PT HAS NO OTHER NEEDS AT THIS TIME
[2020-10-26 20:00] VITALS: BP 137/79
[2020-10-27] VITALS: BP 141/84
[2020-10-27 04:00] VITALS: BP 130/82
--- NOTE | 2020-10-27 07:33 | NUR ---
CHANGED PATIENT'S COLOSTOMY AND ABDOMINAL DRESSING. MODERATE DRAINAGE NOTED TO DRESSING. SIGHT PACKED AND DRESSED PER ORDERS. MEDICATED FOR PAIN PRIOR TO DRESSING CHANGE.
[2020-10-27 08:15] VITALS: BP 140/86
[2020-10-27] MEDS ORDERED: DIFLUCAN100 MG PO (10:28)
[2020-10-27] MEDS ORDERED: HYDROCODON-ACE1 EAC7 PO (10:29)
[2020-10-27] MEDS ORDERED: CIPRO500 MG PO (10:30)
[2020-10-27] MEDS ORDERED: FLAGYL500 MG PO (10:31)
[2020-10-27] MEDS ORDERED: TENORMIN50 MG PO (10:32)
--- NOTE | 2020-10-27 12:40 | MORECARE ---
CASE MANAGEMENT DISCHARGE SUMMARY PATIENT: PATTI CHAVEZ UNIT: [id number] ADM DATE: 10/15/20 AGE: 35 : 83 SEX: M ROOM/BED: D.2232 AUTHOR: ENDY,DOC PHYSICIAN: REFERRING PHYSICIAN: PJ SARAVIA MD DATE OF SERVICE: 10/27/20 Case Management Discharge Planning Summary DCP REVIEW SUMMARY ANTICIPATED D/C DATE: EXPECTED LOS : CASE STATUS: DCP Initiated INITIAL REVIEW: 10/15/2020 INITIAL REVIEWER: Gisela Olivier FINAL DISCHARGE DISPOSITION: 06 : Discharged/Trans to Home Under Care of Organized Home Health Service in Anticipation of Skilled Care FINAL REVIEWER: FINAL REVIEW DATE: DCP Focus Questions & Answers QUESTION: ANSWER : PATIENT: PATTI CHAVEZ ENCOUNTER: [id number] MEDICAL RECORD#: [id number] ADMISSION DATE: 10/15/2020 DISCHARGE DATE: ATTENDING MD: PJ DE PAZ : AGE: 35 MARITAL STATUS: S DC PLAN ID: [id number] FACILITY: [facility] PRINTED ON: 10/27/20 12:40 CT All edits/amendments must be made on the electronic document DICTATION DATE: 10/27/20 124 ELECTRONIC EQUIPMENT TRADES WORKER: ALE 10/27/20 1240 RPT#: [id number] DC DATE: STATUS: ADM IN [facility] [address] [place] [address] END OF REPORT
--- NOTE | 2020-10-27 14:41 | MORECARE ---
CASE MANAGEMENT DISCHARGE SUMMARY PATIENT: PATTI CHAVEZ UNIT: [id number] ADM DATE: 10/15/20 AGE: 35 : 83 SEX: M ROOM/BED: D.2232 AUTHOR: ENDY,DOC PHYSICIAN: REFERRING PHYSICIAN: PJ SARAVIA MD DATE OF SERVICE: 10/27/20 Case Management Discharge Planning Summary COMMENTS ENTERED DATE: 10/27/20 14:29 CT COMMENT TYPE: Discharge Planning REVIEWER: Gisela Olivier PCP ANTOINETTE GONZALES ON [facility] met with patient to complete initial dc planning assessment. CM educated patient on the CM role and verbal consent given by patient to complete assessment. Patient lives at home with his mom, dad, uncle, and son where he is independent with his care. At discharge patient plans to return home and feels this is a safe discharge. His sister will be his new autos delivery driver home today. CM discussed availability of home health, rehab services, and medical equipment. He is has a new ostomy and would like to have home health. JOSE with [facility] home health. They will be able to start care on Friday. I have ordered his ostomy supplies through [employer]. I have sent the order form along with a book to the patient and he was sent home with 5 days worth of supplies. I explained to the patient and stated understanding. Patient denied known discharge needs at this time. CM will continue to follow and will assist as needed with dc plans/needs. DCP REVIEW SUMMARY ANTICIPATED D/C DATE: EXPECTED LOS : CASE STATUS: DCP Initiated INITIAL REVIEW: 10/15/2020 INITIAL REVIEWER: Gisela Olivier FINAL DISCHARGE DISPOSITION: 06 : Discharged/Trans to Home Under Care of Organized Home Health Service in Anticipation of Skilled Care FINAL REVIEWER: FINAL REVIEW DATE: DCP Focus Questions & Answers QUESTION: ANSWER : PATIENT: PATTI CHAVEZ ENCOUNTER: [id number] MEDICAL RECORD#: [id number] ADMISSION DATE: 10/15/2020 DISCHARGE DATE: ATTENDING MD: PJ DE PAZ : AGE: 35 MARITAL STATUS: S DC PLAN ID: [id number] FACILITY: [facility] PRINTED ON: 10/27/20 14:41 CT All edits/amendments must be made on the electronic document DICTATION DATE: 10/27/201440 LIVING SPECIALIST: DM 10/27/201440 RPT#: [id number] DC DATE: STATUS: ADM IN [facility] [address] [place] [address] END OF REPORT
--- NOTE | 2020-10-27 14:58 | NUR ---
MEDIPORT DEACCESSED WITH BANDAGE APPLIED. ABDOMINAL DRESSING CHANGED AND VERBALIZED UNDERSTANDING OF DISCHARGE INSTRUCTIONS. COLOSTOMY INTACT WELL MADHAV DRAINS. STABLE AT TIME OF DISCHARGE.
--- NOTE | 2020-10-30 11:13 | MORECARE ---
CASE MANAGEMENT DISCHARGE SUMMARY PATIENT: PATTI CHAVEZ UNIT: [id number] ADM DATE: 10/15/20 AGE: 35 : 83 SEX: M ROOM/BED: D.2232 AUTHOR: ENDY,DOC PHYSICIAN: REFERRING PHYSICIAN: PJ SARAVIA MD DATE OF SERVICE: 10/30/20 Case Management Discharge Planning Summary COMMENTS ENTERED DATE: 10/27/20 14:29 CT COMMENT TYPE: Discharge Planning REVIEWER: Gisela Olivier PCP ANTOINETTE GONZALES ON [facility] met with patient to complete initial dc planning assessment. CM educated patient on the CM role and verbal consent given by patient to complete assessment. Patient lives at home with his mom, dad, uncle, and son where he is independent with his care. At discharge patient plans to return home and feels this is a safe discharge. His sister will be his power truck driver home today. CM discussed availability of home health, rehab services, and medical equipment. He is has a new ostomy and would like to have home health. JOSE with [facility] home health. They will be able to start care on Friday. I have ordered his ostomy supplies through [employer]. I have sent the order form along with a book to the patient and he was sent home with 5 days worth of supplies. I explained to the patient and stated understanding. Patient denied known discharge needs at this time. CM will continue to follow and will assist as needed with dc plans/needs. DCP REVIEW SUMMARY ANTICIPATED D/C DATE: EXPECTED LOS : CASE STATUS: DCP Initiated INITIAL REVIEW: 10/15/2020 INITIAL REVIEWER: Gisela Olivier FINAL DISCHARGE DISPOSITION: 06 : Discharged/Trans to Home Under Care of Organized Home Health Service in Anticipation of Skilled Care FINAL REVIEWER: FINAL REVIEW DATE: DCP Focus Questions & Answers QUESTION: ANSWER : PATIENT: PATTI CHAVEZ ENCOUNTER: [id number] MEDICAL RECORD#: [id number] ADMISSION DATE: 10/15/2020 DISCHARGE DATE: 10/27/2020 ATTENDING MD: PJ DE PAZ : AGE: 35 MARITAL STATUS: S DC PLAN ID: [id number] FACILITY: [facility] PRINTED ON: 10/30/20 11:13 CT All edits/amendments must be made on the electronic document DICTATION DATE: 10/30/20 111 FAMILY MEDICINE PHYSICIAN ASSISTANT: ALE 10/30/20 1113 RPT#: [id number] DC DATE:10/27/20 STATUS: DIS IN [facility] [address] [facility] [place] [address] END OF REPORT
== END 2020-10-27 15:15 | disposition home health service (06) | DRG 330 ==
LOC: D.ER 16:54 → D.MS 20:33 → D.ICU 20:33 → D.MS 10-22 22:03
PROVIDERS: Family Medicine; Surgery; ADMIT Surgery; ATTEND Surgery
PROC: 0DJD8ZZ Inspection of Lower Intestinal Tract, Via Natural or Artificial Opening Endoscopic (ICD-10-PCS; 2020-10-16)
PROC: 0DBQ0ZZ Excision of Anus, Open Approach (ICD-10-PCS; principal; 2020-10-16 09:45)
PROC: 0D1N0Z4 Bypass Sigmoid Colon to Cutaneous, Open Approach (ICD-10-PCS; 2020-10-19 13:15)
DX: C19 Malignant neoplasm of rectosigmoid junction (principal); K62.5 Hemorrhage of anus and rectum; I10 Essential (primary) hypertension; K21.9 Gastro-esophageal reflux disease without esophagitis; D50.9 Iron deficiency anemia, unspecified; Z91.138 Patient's unintentional underdosing of medication regimen for other reason; T45.1X5A Adverse effect of antineoplastic and immunosuppressive drugs, initial encounter

== ENCOUNTER 2020-11-13 15:00 | Outpatient (CLI) | payer OTHER ==
[2020-10-16 12:40] VITALS: BMI 26.2
[~2020-11-13 15:00] MED LIST changes: +CIPRO500 MG PO; +DIFLUCAN100 MG PO; +HYDROCODON-ACE1 EAC7 PO; +TENORMIN50 MG PO
== END 2020-11-13 23:59 | disposition home or self-care (01) ==
LOC: D.CT 15:00
PROVIDERS: ATTEND Surgery
DX: C20 Malignant neoplasm of rectum (principal)